=== PATIENT | female | born 1935 | race Caucasian/White ===

== ENCOUNTER 2016-08-05 16:09 | Observation (INO) | payer OTHER ==
--- NOTE | ~2016-08-05 | HP ---
History And Physical [facility] [address] [place]. [address] NAME: MARGIE JOHNSON : 35 STATUS : ADM Zayda PAT#: [id number] AGE: 81 ADM/REG DATE : 08/05/16 MR#: [id number] REPORT SERV DATE: 08/06/16 DICTATED BY: ALECIA STEVENS DATE: 08/05/16 REPORT STATUS : Draft TRANSCRIBED BY: MODDemond DATE: 08/05/16 DATE OF ADMISSION: 08/05/2016 CHIEF COMPLAINT: Near syncopal episode today, possible TIA yesterday. HISTORY OF PRESENT ILLNESS: This is a very pleasant 81-year-old female with history of hypertension, diabetes, urinary urgency presenting today to [facility] after she has been advised by her primary care provider where she has been evaluated today after a near syncopal episode with fall. It is important to note that patient has a history of hypertension and diabetes. She is otherwise very healthy. She went on Thursday to [place] on her citizen trip and as well she was, Thursday visiting in [place], apparently she had an episode where she became extremely dizzy, extremely confused, and unable to walk. There was an EMP present during that time, but she did not want to go to hospital in [place]. She called her daughter who started driving and she went to [place] to take her home. She said that after she brought her home, she was weak, she had some shuffled walking, but she has not been confused. This morning she woke up at 7:30, she went to the bathroom, and while she was trying to use the bathroom, she became extremely dizzy and she fell. She did not really pass out, but she fell and as a result her daughter brought her to hospital. She did have some headache, but she did not have any chest pain or shortness of breath, no PND or orthopnea. She did not have any diplopia, dysphagia. No nausea or vomiting. No diarrhea or constipation. No abdominal pain. She did not have any fever. No increased urinary frequency or urgency. No other complaints. The patient has been evaluated in the emergency room and after initial evaluation, Hospitalist Service has been asked for admission, further evaluation, and treatment. PAST MEDICAL HISTORY: Significant for hypertension, diabetes, urinary incontinence, degenerative joint disease, osteoarthritis. PAST SURGICAL HISTORY: Include hysterectomy, cholecystectomy, hernia repair, breast surgery for benign breast cyst, left foot surgery and right knee surgery. SOCIAL HISTORY: The patient denies tobacco, alcohol, or IV drugs. ALLERGIES: THE PATIENT IS ALLERGIC TO CODEINE. MEDICATIONS: At home include Norvasc, Amaryl, and Ditropan. FAMILY HISTORY: Significant for hypertension. REVIEW OF SYSTEMS: A 14-point review of systems has been obtained and pertinent positive has been listed into the history of present illness. Otherwise, negative except those underlying above. OBJECTIVE: VITAL SIGNS: On arrival, patient have been afebrile, blood pressure 143/67, heart rate 78, respiratory rate 16, and saturating 97% on room air. GENERAL: She is a very pleasant, well-developed, well-nourished female, in no acute History And Physical [address] [address] NAME: MARGIE JOHNSON : 35 STATUS : ADM Zayda PAT#: [id number] AGE: 81 ADM/REG DATE : 08/05/16 MR#: [id number] REPORT SERV DATE: 08/06/16 DICTATED BY: ALECIA STEVENS DATE: 08/05/16 REPORT STATUS : Draft TRANSCRIBED BY: GORDON DATE: 08/05/16 distress. She is alert and oriented x3. She is nonfocal. She follows all her commands appropriately. HEENT: Shows pupils equal, round, reactive to light. Extraocular movements intact. No JVD. No lymphadenopathy. No thyromegaly appreciated. CHEST: Eval shows bilateral air entry. Clear anteroposterior. No wheezes, crackles, or rhonchi appreciated. CARDIOVASCULAR: She has regular rate and rhythm. S1, S2 positive. No S3, no S4. No murmurs, rubs, or gallops appreciated. ABDOMEN: Soft, positive bowel sounds. Nontender. No guarding. No rebound. EXTREMITIES: No clubbing, cyanosis, or edema. NEUROLOGIC: She is alert and oriented x3. She is nonfocal. She follows all her commands appropriately. LABORATORY DATA: Labs from today include procalcitonin 0.17, sodium 139, potassium 3.6, chloride 105, CO2 of 23, BUN 18, creatinine 0.71, glucose is 91. Her total protein 6.8, albumin 3.12, total bilirubin is 0.9, alkaline phosphatase 72, ALT 19, AST 19. Troponin I less than 0.02. Her lactate is 1.5. White count is 7.9, hemoglobin 12.8, hematocrit 37.9, platelets 159, and INR is 1.1. Her UA has been positive for moderate leukocyte esterase. Her urine cultures currently are pending. Her EKG shows normal sinus rhythm. Her chest x- ray, PA and lateral, showed borderline heart size, but the lungs are clear and CT of the brain shows no acute intracranial abnormality. There are some chronic microvascular white matter ischemic changes and calcific atherosclerosis. ASSESSMENT: This is a very pleasant 81-year-old female with: 1. Near syncope. 2. Possible transient ischemic attack. 3. Possible urinary tract infection. 4. Hypertension. 5. Diabetes type 2, noninsulin dependent. 6. Degenerative joint disease, osteoarthritis. PLAN: 1. Patient is going to be admitted for observation. We are going to place her on oxygen, place her on aspirin. MRI of the brain, 2D echo, and carotid ultrasound check. Followup orthostatics. Patient has not been orthostatic in the emergency room. We are going to rule her out for NV by serial cardiac enzymes, serial EKG. Check on vitamin B12 and folate EKG and consult Dr. Ann, Neurology, for further recommendation. 2. Near syncope. We are going to check her orthostatics. We are going to check an MRI of the brain. We are going to rule her out for NV by serial cardiac enzymes, serial EKGs. We will check vitamin B12 and folic acid and TSH and a free T4 as well as a magnesium and phosphorus. 3. History of hypertension. We will continue her home medications. Provide p.r.n. hydralazine as needed. 4. Diabetes type 2, noninsulin dependent. We are going to hold her Amaryl. Check on hemoglobin A1c. Diabetic diet. Accu-Cheks q.a.c. and q.h.s. and sliding scale insulin, subcutaneously level 1. 5. Possible urinary tract infection. Check urine culture and place her on Rocephin and History And Physical [address] [address] NAME: MARGIE JOHNSON : 35 STATUS : ADM Zayda PAT#: [id number] AGE: 81 ADM/REG DATE : 08/05/16 MR#: [id number] REPORT SERV DATE: 08/06/16 DICTATED BY: ALECIA STEVENS DATE: 08/05/16 REPORT STATUS : Draft TRANSCRIBED BY: GORDON DATE: 08/05/16 follow up the results of the urine cultures. We will continue her Ditropan as well. We are going to provide reasonable pain and nausea control as well as GI and DVT prophylaxis with SCDs. That has been discussed extensively with the patient as well as the patient's daughter. All the questions have been answered in full. Further workup and recommendation pending above. It is worthwhile to note that patient is going to be followed by Hospitalist Service. CF/GORDON Aelcia Stevens M.D. / [id number] CC: Óscar Smith M.D.
--- NOTE | ~2016-08-05 | DS ---
Discharge Summary [facility] [address] [place]. [address] NAME: MARGIE JOHNSON : 35 STATUS : DIS Zayda PAT#: [id number] AGE: 81 ADM/REG DATE : 08/05/16 MR#: [id number] REPORT SERV DATE: 08/08/16 DICTATED BY: DATE: REPORT STATUS : Draft TRANSCRIBED BY: MODL DATE: 08/07/16 ADMISSION DATE: 08/05/2016 DISCHARGE DATE: 08/07/2016 PROCEDURES AND IMAGIN. 08/05/2016, CT of the brain without contrast showed no acute intracranial abnormality with chronic microvascular white matter ischemic changes and calcific atherosclerosis. 2. 08/05/2016, chest PA and lateral showed borderline heart size with lungs clear. 3. 08/06/2016, carotid Doppler showed carotids category 1. 4. 08/06/2016, MRI of the brain without contrast showed no acute infarct or bleed seen. Atrophy and extensive old deep white matter changes. There are several small microbleeds also identified. 5. 08/06/2016, abdominal AP and upright showed unremarkable bowel gas pattern. HOSPITAL COURSE: Please refer to Dr. Alecia Gonzalez's is H and P dated 08/05/2016 for complete details regarding patient's admission. In brief, the patient was admitted by Dr. Gonzalez for initial workup and management of near-syncopal episode with questionable TIA status post falls. It was determined at that time that the patient might have a possible UTI. The patient was also having diarrhea for the past week and upon receipt of the urinalysis, it showed that the patient had gram-negative bacteria, so straight cath UA was ordered and urinalysis is clean. During conversation with patient on 08/06/2016, the patient stated that she was having diarrhea. Upon questioning, stated she has been having diarrhea for approximately a week, three to four stools a day without any alleviation from taking Imodium. The patient has continued to eat her normal regular diet. The patient had decreased her fluid intake due to socialization with friends and incontinence and it was felt the patient became dehydrated during this time. The patient did experience two falls in the last week and some confusion which is felt to be due to her consistent diarrhea and lack of p.o. fluid intake. The patient has been rehydrated and has been instructed to drink fluids profusely while she is at home. The patient continues to have three to four diarrhea stools. The patient was experiencing some abdominal pain in her bilateral lower quadrants. This has been improving today after initiation of vancomycin. The patient has history of hypertension, which has been well controlled during her stay. The patient has not had any episodes of chilling, which she had been having while she was at home. The patient will be discharged on vancomycin and Florastor. PHYSICAL EXAMINATION: VITAL SIGNS: The patient's blood pressure is 145/93, O2 saturation is 93% on room air, temperature is 98.6, heart rate is 75, respirations are 18. HEENT: Head is atraumatic, normocephalic. Pupils are equal, round, reactive to light and accommodation. No xanthelasma. Sclerae are clear and nonicteric. NECK: Neck is supple with no obvious thyromegaly or lymphadenopathy. Trachea is midline. Neck veins are flat. CARDIAC: The patient has S1 and S2 with no obvious murmurs, rubs, or gallops. LUNGS: Lungs are clear to auscultation with normal respiratory effort. GI: Abdomen is soft with diffuse tenderness in bilateral lower quadrants. The patient has hyperactive bowel sounds. No palpable organomegaly. Discharge Summary [address] [address] NAME: MARGIE JOHNSON : 35 STATUS : DIS Zayda PAT#: [id number] AGE: 81 ADM/REG DATE : 08/05/16 MR#: [id number] REPORT SERV DATE: 08/08/16 DICTATED BY: DATE: REPORT STATUS : Draft TRANSCRIBED BY: MODDemond DATE: 08/07/16 EXTREMITIES: No significant edema, clubbing, or cyanosis. Dorsalis pedis and posterior tibial pulses are palpable bilaterally. MUSCULOSKELETAL: Moves all extremities x4. She is ambulatory without assistance. No difficulties with balance. SKIN: Skin is warm and dry with normal color and turgor. NEUROPSYCH: The patient is alert and oriented x4, pleasant, cooperative. Cranial nerves II through XII are grossly intact. DISCHARGE DIET: The patient will be going home on GI soft diet. DISCHARGE MEDICATIONS: Amlodipine 2.5 mg daily, Ditropan 5 mg p.o. twice daily, Amaryl 1 mg daily, vancomycin 125 mg p.o. q.6 hours x14 days, Florastor one b.i.d. x21 days. ALLERGIES: THE PATIENT IS ALLERGIC TO CODEINE FOR WHICH SHE HAS NAUSEA AND VOMITING. DISCHARGE INSTRUCTIONS: The patient is to increase her p.o. fluid intake. The patient is to follow up with her PCP in 7 to 10 days. Should the patient have any increase in diarrhea or increased falls or episodes of syncope, she should present to her PCP or present to the ER. Approximately, 30 minutes has been spent in coordination of discharge care of this patient, including [id number] encounter and summarization of the discharge. DICTATED BY: MORENO Batista/MODL Aleyda Pressley NP / [id number] CC: Óscar Smith M.D.
[2016-08-05 12:48] LABS: BASOPHILS 0.3 %; BASOPHILS ABSOLUTE 0.02 10/3/uL (0.0-0.16); EOSINOPHILS ABSOLUTE 0.08 10/3/uL (0.0-0.53); ER CBC TAT 0 Hrs 05 Mins; HEMATOCRIT 37.9 % (36.0-48.0); HEMOGLOBIN 12.8 g/dL (12.0-16.0); IMMATURE GRANULOCYTES 0.3 %; LYMPHOCYTES 29.7 %; LYMPHOCYTES ABSOLUTE 2.33 10/3/uL (0.67-4.30); MEAN CORPUS HGB CONC 33.8 g/dL (32.0-36.0); MEAN CORPUSCULAR HEMOGLOB 30.6 pg (26.0-34.0); MEAN CORPUSCULAR VOLUME 90.7 fL (80-100); MEAN PLATELET VOLUME 9.5 fL (9.2-13.0); MONOCYTES 10.1 %; MONOCYTES ABSOLUTE 0.79 10/3/uL (0.21-1.20); NEUTROPHILS 58.6 %; NEUTROPHILS ABSOLUTE 4.61 10/3/uL (2.02-8.40); PLATELET COUNT 159 10/3/uL (150-400); RBC DISTRIBUTION WIDTH 14.3 % (12.0-16.0); RED CELL COUNT 4.18 10/6/uL (4.0-5.6); WHITE BLOOD CELLS 7.9 10/3/uL (4.5-10.5)
[2016-08-05 12:50] LABS: IMMATURE GRANULOCYTES ABSOLUTE 0.02 10/3/uL (0.0-0.11); MANUAL DIFF NO %
[2016-08-05 13:00] LABS: INTERNATIONAL NORMAL RATI 1.1 UNITS (-); PARTIAL THROMBO TIME 31.4 SEC (22.5-37.2); PROTIME (NOT ORD) 14.2 SEC (12.0-14.5)
[2016-08-05 13:06] LABS: A/G RATIO 0.8 (0.7-1.9); ALBUMIN 3.1 G/DL (3.5-5.0); ALKALINE PHOSPHATASE 72 U/L (45-117); BUN (BLOOD UREA NITROGEN) 18 MG/DL (6-23); CALCIUM, SERUM 9.1 MG/DL (8.5-10.4); CHLORIDE, SERUM 105 MMOL/L (96-112); CO2 (CARBON DIOXIDE) 26 MMOL/L (24-34); CREATININE 0.71 MG/DL (0.55-1.02); GFR AFRICAN AMERICAN 93 ML/MIN (>=60); GFR NON AFRICAN AMERICAN 80 ML/MIN (>=60); GLOBULIN 3.7 G/DL (2.5-4.1); GLUCOSE, SERUM 91 MG/DL (60-99); POTASSIUM, SERUM 3.6 MMOL/L (3.5-5.3); SGOT(AST) 19 U/L (5-40); SGPT(ALT) 19 U/L (5-65); SODIUM, SERUM 139 MMOL/L (135-148); TOTAL BILIRUBIN 0.9 MG/DL (0-1.2); TOTAL PROTEIN 6.8 G/DL (6.0-8.5); TROPONIN I <0.02 NG/ML (<0.05)
[2016-08-05 13:15] LABS: BAND NEUTROPHILS 18 %; EOSINOPHILS 1 %; EOSINOPHILS ABSOLUTE (CALC) 0.08 10/3/uL (0.0-0.53); ER DIFF TAT 0 Hrs 32 Mins; LYMPHOCYTES 29 %; LYMPHOCYTES ABSOLUTE (CALC) 2.29 10/3/uL (0.67-4.30); MONOCYTES 11 %; MONOCYTES ABSOLUTE (CALC) 0.87 10/3/uL (0.21-1.20); NEUTROPHILS ABSOLUTE (CALC) 4.66 10/3/uL (2.02-8.40); PLATELET ESTIMATE ADQ (ADEQUATE); RBC MORPHOLOGY NORM (NORMAL); SEGMENTED NEUTROPHIL (0) 41 %; TOTAL NUCLEATED CELLS 100
[2016-08-05 16:21] LABS: ASCORBIC ACID (UR NOT ORDER) NEG (NEG); BILIRUBIN, URINE NEGATIVE (NEG); ER URINALYSIS TAT 0 Hrs 10 Mins; KETONE, URINE NEGATIVE (NEG); LEUKOCYTE ESTERASE(NOT OR MOD (NEG); NITRITE (URINE) NEG (NEG); WBC (NOT ORDERED) (RFLEX) 1 (0-5)
[2016-08-05 17:16] LABS: LACTATE 1.5 MMOL/L (0.3-2.4)
[2016-08-05] MEDS ORDERED: AMARYL1 MG PO (18:47)
[2016-08-05] MEDS ORDERED: NORV25 PO (18:47)
[2016-08-05] MEDS ORDERED: DITRO5 PO (18:47)
[2016-08-05] MEDS ORDERED: *UNABLE1 (18:48)
[2016-08-05 22:03] LABS: CPK 107 U/L (0-200); TROPONIN I <0.02 NG/ML (<0.05)
[2016-08-05 22:09] LABS: CK-MB 1.5 NG/ML
[2016-08-05 23:04] LABS: FREE T4 1.25 NG/DL (0.76-1.46); ULTRASENSITIVE TSH 4.69 MCIU/ML (0.358-3.740)
[2016-08-05 23:05] LABS: FOLATE 27.4 NG/ML (>5.2)
[2016-08-06 04:37] LABS: BASOPHILS 0.4 %; BASOPHILS ABSOLUTE 0.03 10/3/uL (0.0-0.16); EOSINOPHILS 1.8 %; EOSINOPHILS ABSOLUTE 0.14 10/3/uL (0.0-0.53); HEMATOCRIT 34.7 % (36.0-48.0); IMMATURE GRANULOCYTES 0.3 %; IMMATURE GRANULOCYTES ABSOLUTE 0.02 10/3/uL (0.0-0.11); LYMPHOCYTES 31.1 %; LYMPHOCYTES ABSOLUTE 2.41 10/3/uL (0.67-4.30); MEAN CORPUS HGB CONC 34.6 g/dL (32.0-36.0); MEAN CORPUSCULAR HEMOGLOB 31.3 pg (26.0-34.0); MEAN CORPUSCULAR VOLUME 90.6 fL (80-100); MEAN PLATELET VOLUME 9.8 fL (9.2-13.0); MONOCYTES 13.7 %; MONOCYTES ABSOLUTE 1.06 10/3/uL (0.21-1.20); NEUTROPHILS 52.7 %; NEUTROPHILS ABSOLUTE 4.08 10/3/uL (2.02-8.40); PLATELET COUNT 153 10/3/uL (150-400); RED CELL COUNT 3.83 10/6/uL (4.0-5.6); WHITE BLOOD CELLS 7.7 10/3/uL (4.5-10.5)
[2016-08-06 04:41] LABS: MANUAL DIFF NO %
[2016-08-06 04:46] LABS: INTERNATIONAL NORMAL RATI 1.2 UNITS (-); PROTIME (NOT ORD) 14.9 SEC (12.0-14.5)
[2016-08-06 04:47] LABS: PARTIAL THROMBO TIME 31.9 SEC (22.5-37.2)
[2016-08-06 04:52] LABS: CHLORIDE, SERUM 111 MMOL/L (96-112); CO2 (CARBON DIOXIDE) 25 MMOL/L (24-34); CREATININE 0.49 MG/DL (0.55-1.02); GFR AFRICAN AMERICAN 106 ML/MIN (>=60); GFR NON AFRICAN AMERICAN 91 ML/MIN (>=60); GLUCOSE, SERUM 90 MG/DL (60-99); PHOSPHORUS, SERUM 2.6 MG/DL (2.5-4.5); POTASSIUM, SERUM 3.7 MMOL/L (3.5-5.3); SODIUM, SERUM 144 MMOL/L (135-148); TRIGLYCERIDE 108 MG/DL (< 150); TROPONIN I 0.02 NG/ML (<0.05)
[2016-08-06 04:53] LABS: B NATRIURETIC PEPTIDE (BNP) 73.2 PG/ML (< 100.0); BUN (BLOOD UREA NITROGEN) 13 MG/DL (6-23); CALCIUM, SERUM 8.1 MG/DL (8.5-10.4)
[2016-08-06 04:54] LABS: CHOL/HDL RATIO(NOT ORDER) 2.8 (0-5); CHOLESTEROL 94 MG/DL (< 200); CK-MB 1.1 NG/ML; CPK 80 U/L (0-200); HDL CHOLESTEROL 33 MG/DL (> 49); LDL CHOLESTEROL 40 MG/DL (< 130); NON-HDL CHOLESTEROL 61 MG/DL (< 160)
[2016-08-06 12:30] LABS: GLYCOHEMOGLOBIN (HbA1c) 5.9 % (4.7-6.1)
[2016-08-06 16:07] LABS: CPK 81 U/L (0-200); TROPONIN I <0.02 NG/ML (<0.05)
[2016-08-06 16:08] LABS: CK-MB 1.6 NG/ML
[2016-08-06 17:26] LABS: ASCORBIC ACID (UR NOT ORDER) NEG (NEG); BILIRUBIN, URINE NEGATIVE (NEG); KETONE, URINE NEGATIVE (NEG); LEUKOCYTE ESTERASE(NOT OR NEG (NEG); WBC (NOT ORDERED) (RFLEX) 1 (0-5)
[2016-08-07] MEDS ORDERED: FLORASTOR250 MG PO (12:09)
[2016-08-07] MEDS ORDERED: VANCOCIN HCL125 MG PO (12:10)
== END 2016-08-07 12:48 | disposition home or self-care (01) ==
LOC: ER 16:09 → CDU1 19:53 → CDU2 20:28 → CDU1 08-06 22:25
PROVIDERS: Emergency Medicine; Internal Medicine; Nurse Practitioner Family
PROC: B030ZZZ Magnetic Resonance Imaging (MRI) of Brain (ICD-10-PCS; principal; 2016-08-05)
PROC: B0201ZZ Computerized Tomography (CT Scan) of Brain using Low Osmolar Contrast (ICD-10-PCS; 2016-08-05)
DX: R55 Syncope and collapse (principal); I10 Essential (primary) hypertension; E11.9 Type 2 diabetes mellitus without complications; A08.8 Other specified intestinal infections; R39.15 Urgency of urination; M19.90 Unspecified osteoarthritis, unspecified site; Z90.49 Acquired absence of other specified parts of digestive tract; Z98.890 Other specified postprocedural states; Z88.5 Allergy status to narcotic agent; Z79.899 Other long term (current) drug therapy
CPT/HCPCS: 70450; 70551; 71020; 74020; 80048; 80053; 80061; 81001; 82272; 82550; 82553; 82607; 82746; 82962; 83036; 83605; 83615; 83735; 83880; 84100; 84145; 84439; 84443; 84484; 85025; 85610; 85730; 87040; 87077; 87086; 87186; 87328; 87329; 87493; 87493-59; 89055; 93005; 93306; 93880; 96374; 99285; A9270-GY; G0378